=== PATIENT | female | born 1965 | race Caucasian/White ===

== ENCOUNTER 2021-02-18 09:08 | Emergency (ER) | payer OTHER ==
[2021-02-18 09:13] VITALS: BP 159/95
--- NOTE | 2021-02-18 09:43 | ED Lower Extremity ---
General Chief Complaint: Lower Extremity Stated Complaint: SWELLING IN BOTH ANKLES | WEAKNESS IN LEGS Nursing Triage Note: Patient reports bilateral lower leg swelling, left more than right, since yesterday. She also reports the back of her left knee feels "mushy." Her states he is concerned she may have blood clots in her legs. She reports she started taking medication for her blood pressure within the last month. She reports weakness in her left knee and states it gave out and she fell several days ago, hitting the left side of her head. Nursing Sepsis Screen: No Definite Risk Source: patient, spouse History of Present Illness Date Seen by Provider: Feb 18, 2021 Time Seen by Provider: 09:10 Initial Comments 56-year-old female presenting with concern about swelling in her extremities. She felt the left leg might be a little more swollen but she also has had increased difficulty with her knee in the morning based on outside the last week. She had tried get up from a swing on the porch last Saturday and her knee giving out causing her to fall. She hit her face and head resulting in a goose egg on her left forehead. This has settled around her eye causing a black eye. She denies any loss of consciousness, blurry vision, change in vision, nausea, vomiting, drainage or bleeding from her nose or ears. She has had some bursitis and chronic pain in her left hip and with having to wear the brace on her left knee her leg has been bothering her more. She has noticed in the last few days increasing swelling to her left leg and ankle. She feels like there is some tingling in her leg. Her and her significant other were concerned about possible blood clot in the leg. She has no redness or swelling or pain to the calf. She does have some swelling to her right leg and ankle as well. She had recently been started on amlodipine or Norvasc and they had increased her to 10 mg recently. She denies any shortness of breath, chest pain, heart racing, abdominal pain, pain with urination. She denies any other blood clots or history of blood clots. She has had longstanding issues with her knee and hip on the left side but now the knee feels "mushy" and like it is not stable. Onset: last week Severity: moderate Method of Injury: fell Allergies and Home Medications Allergies Coded Allergies: atropine (Verified Allergy, Unknown, 02/18/21) Home Medications Amlodipine Besylate 10 Mg Tablet, 10 MG PO DAILY, (Reported) Last Action: New Order Patient Home Medication List Home Medication List Reviewed: Yes Review of Systems Constitutional: No chills, No dizziness, No fever EENTM: see HPI, other (bruising to left forehead/eye since fall 02/10); No blurred vision, No double vision, No eye pain Respiratory: no symptoms reported Cardiovascular: no symptoms reported Gastrointestinal: no symptoms reported Genitourinary: no symptoms reported Musculoskeletal: see HPI, joint pain (mild to left knee, chronic left hip) Skin: see HPI Psychiatric/Neurological: Tingling (left knee and foot) Past Sldptyn-Krwlde-Tcviwt Hx Past Med/Social Hx: Reviewed Nursing Past Med/Soc Hx Patient Social History Recent Infectious Disease Expo: No Past Medical History Respiratory: No Cardiac: Yes (Reynaud's) Hypertension Neurological: No Reproductive Disorders: No Genitourinary: No Gastrointestinal: No Musculoskeletal: Yes Arthritis Endocrine: No HEENT: No Cancer: No Psychosocial: No Integumentary: No Physical Exam Vital Signs Vital Signs - First Documented 02/18/21 09:13 Temp 36.8 Pulse 97 Resp 16 B/P (MAP) 159/95 (116) Pulse Ox 92 O2 Delivery Room Air Capillary Refill : Less Than 3 Seconds Height, Weight, BMI Height: '" Weight: lbs. oz. kg; BMI Method: General Appearance: WD/WN, no apparent distress HEENT: PERRL/EOMI, other (mild bruising that is healing around left eye) Neck: non-tender, full range of motion, supple, normal inspection Cardiovascular: normal peripheral pulses, regular rate, rhythm, no murmur, other (trace to 1+ BLE that is non-pitting) Respiratory: chest non-tender, lungs clear, normal breath sounds, no respiratory distress, no accessory muscle use Knees: bilateral knee non-tender, bilateral knee normal range of motion, bilateral knee no evidence of injury, bilateral knee bone tenderness, bilateral knee other (both knees have laxity with varus and valgus stress. anterior and posterior drawer sign negative bilateral) Ankles: bilateral ankle swelling (trace to 1+ non pitting ededma BLE) Feet: bilateral foot non-tender, bilateral foot normal inspection, bilateral foot normal range of motion, bilateral foot no evidence of injury Neurologic/Tendon: normal sensation, normal motor functions, normal tendon functions Neurologic/Psychiatric: no motor/sensory deficits, alert, oriented x 3 Skin: warm/dry, ecchymosis (around left eye) Progress/Results/Core Measures Results/Orders Lab Results Laboratory Tests Test 02/18/21 09:35 Range/Units D-Dimer 0.41 0.00-0.49 UG/ML My Orders Orders - LESA LICONA MD [employer] (02/18/21 09:39) Vital Signs/I&O 02/18/21 09:13 Temp 36.8 Pulse 97 Resp 16 B/P (MAP) 159/95 (116) Pulse Ox 92 O2 Delivery Room Air Blood Pressure Mean: 116 Progress Progress Note #1: Progress Note counseled pt and significant other that ultrasound was not available today. On exam she does not have swelling, redness, warmth, pain, cording to calf on either side that would make me concerned for DVT. This is likely related to her knee and hip and recent injury with brace use as well as the use of Amlodipine for BP which was increased to 10 mg January 23. Will order D dimer to help screen for a DVT/blood clot. Progress Note #2: Progress Note DDimer negative so reassured pt that exam and lab are not showing signs of blood clot. Counseled on return precautions and otherwise encouraged to check with clinic to see PCP and for her knee she was planning to see RACHAEL Guerin. Advised to try gm wrap to knee, offered knee immobilizer and pt refused. Departure Impression Primary Impression: Left knee sprain Qualified Codes: S83.92XA - Sprain of unspecified site of left knee, initial encounter Additional Impression: Bilateral swelling of feet and ankles Disposition: HOME, SELF-CARE Condition: Stable Departure-Patient Inst. Decision time for Depature: 10:05 Referrals: THO MELTON DO (PCP/Family) Primary Care Physician Patient Instructions: Knee Sprain ED, Swelling Add. Discharge Instructions: Your exam and blood test to help screen for a DVT or Deep Venous Thromboembolism (Blood clot in your leg) are negative. The swelling in your legs and ankles is likely due to the inflammation and injury to your knee from recent fall. Your blood pressure medicine Amlodipine (Norvasc) is a common medicine for causing some swelling in ankles and legs as well. If this persists or worsens with redness/swelling in your calf, shortness of breath, pain in your calf/leg then you should have it rechecked. Otherwise follow up with clinic and you could see Orthopedics about your knee. You might need an MRI to check the joint stability and structure of your knee. Try using an gm bandage instead of your brace to see if that helps support your knee without irritating your hip bursitis and the way you walk. Nurse Practitioner Dimitry Guerin works with Dr. Saleh and his phone number to set up an appointment for evaluation is [phone] All discharge instructions reviewed with patient and/or family. Voiced understanding. LESA LICONA MD Feb 18, 2021 09:43
[2021-02-18] MEDS ORDERED: AMLO-251 PO (09:48)
== END 2021-02-18 10:16 | disposition home or self-care (01) ==
LOC: ER FS 09:13
DX: S83.92XA Sprain of unspecified site of left knee, initial encounter (principal); M79.89 Other specified soft tissue disorders; I10 Essential (primary) hypertension; Z79.899 Other long term (current) drug therapy; W09.1XXA Fall from playground swing, initial encounter
CPT/HCPCS: 36415; 85379; 99283